=== PATIENT | male | born 1940 | race Caucasian/White ===

== ENCOUNTER 2018-04-12 09:21 | Inpatient (IN) | payer MEDICARE, OTHER ==
[~2018-04-12] VITALS: Ht 172.7 cm; Wt 11.8 kg
[~2018-04-12 09:21] MED LIST: ADAL40PEN IM; ALBU90OI61 INH; ALPR.5 PO; ALUMAG30SU PO; AMLO5 PO; AMOCLA875 PO; ANORO ELLIPTA1 EACH INH; ASPI325 PO; ASPI81CH PO; ASPI81EC PO; ATOR80 PO; Aspir 8181 MG PO; BUPR150ER PO; CETI5 PO; CHOL10002 PO; CIPR500 PO; CLOBET30L TOP; CLOP75 PO; CYAN1000 PO; Coumadin5 MG PO; ETAN50I SC; FURO20 PO; HYDR1TAB94 PO; LISI20 PO; LISI5 PO; LOSARTAN POTAS100 MG PO; METO25ER PO; MOME220I INH; NITR.4SL SL; OXYB5 PO; Omeprazole20 M1; Omeprazole20 M1 PO; Percocet 5-3251 EACH PO; Prilosec Otc20 MG PO; Pyridium200 MG PO; SPIRIVA RESPIMAT4 GM IH; SUCR1 PO; TAMS.4ER PO; TICA90TA PO; TIOT18 INH; TRAM50 PO; VITAMIN B122500 MCG PO; VITAMIN D2000 UNIT PO; Valium5 MG PO; WARF5 PO; WARF7.5 PO; WELLBUTRIN PO
[2018-04-12 09:52] LABS: BASOPHILS ABSOLUTE AUTO 0.03 K/mm3 (0.00-0.23); BASOPHILS PERCENT AUTO 0 % (0-2); EOSINOPHILS ABSOLUTE AUTO 0.01 K/mm3 (0.00-0.68); EOSINOPHILS PERCENT AUTO 0 % (0-6); Hematocrit 37.6 % (37.0-53.0); Hemoglobin 12.2 g/dL (13.5-17.5); IMMATURE GRAN ABSOLUTE AUTO 0.08 K/mm3 (0.00-0.10); IMMATURE GRAN PERCENT AUTO 1 % (0-1); LYMPHOCYTES ABSOLUTE AUTO 0.51 K/mm3 (0.84-5.20); LYMPHOCYTES PERCENT AUTO 3 % (21-46); MONOCYTES ABSOLUTE AUTO 1.86 K/mm3 (0.16-1.47); MONOCYTES PERCENT AUTO 11 % (4-13); Mean Corpuscular HGB 31.5 pg (26.0-34.0); Mean Corpuscular HGB Conc 32.4 g/dL (31.5-36.5); Mean Corpuscular Volume 97 fL (80-100); Mean Platelet Volume 10.9 fL (9.1-12.4); NEUTROPHILS ABSOLUTE AUTO 15.08 K/mm3 (1.96-9.15); NEUTROPHILS PERCENT AUTO 86 % (41-73); Platelet Count 284 K/mm3 (150-400); RDW Coefficient Variation 13.9 % (11.7-14.2); RDW Standard Deviation 49.1 fL (35.1-46.3); Red Blood Cell Count 3.87 M/mm3 (4.30-5.90); White Blood Cell Count 17.57 K/mm3 (4.00-11.30)
[2018-04-12 10:06] LABS: International Normalized Ratio 1.14; Prothrombin Time Results 11.7 Sec (9.7-11.5)
[2018-04-12 10:17] LABS: Alanine Aminotransfer (ALT/SGP 22 U/L (12-78); Albumin, Blood 2.6 g/dL (3.4-5.0); Albumin/Globulin Ratio 0.6 (0.8-1.8); Alk Phos 123 U/L (50-136); Anion Gap 11 mmol/L (6-16); Aspartate Aminotrans (AST/SGOT 17 U/L (12-37); Bilirubin, Total 1.1 mg/dL (0.1-1.0); Blood Urea Nitrogen 24 mg/dL (8-24); Bun/Creatinine Ratio 16.9 (12.0-20.0); CO2, Blood 25 mmol/L (21-32); Calcium, Blood 8.9 mg/dL (8.5-10.1); Chloride, Blood 100 mmol/L (98-108); Creatinine, Blood 1.42 mg/dL (0.60-1.20); Glomerular Filtration Rate 51 (60-); Glucose, Blood 137 mg/dL (70-99); Potassium, Blood 3.7 mmol/L (3.5-5.5); Sodium, Blood 136 mmol/L (136-145); Total Protein, Blood 6.6 g/dL (6.4-8.2); Troponin I <0.015 ng/mL (0.000-0.040)
[2018-04-12] MEDS ORDERED: Enbrel50 MG/1 M1 SC (19:35)
[2018-04-12] MEDS ORDERED: CHOL10002 PO (19:38)
[2018-04-12] MEDS ORDERED: RISP.5 PO (19:40)
[2018-04-12] MEDS ORDERED: BUPR150ER PO (19:41)
[2018-04-12] MEDS ORDERED: LOSA25 PO (19:42)
[2018-04-12] MEDS ORDERED: CLOBET30L TOP (19:44)
[2018-04-12] MEDS ORDERED: BREO ELLIPTA 11 EACH INH (19:44)
[2018-04-12] MEDS ORDERED: Norco 10-325 T1 EACH PO (19:46)
--- NOTE | 2018-04-12 19:52 | NUR ---
Shift Summary No acute changes since initial shift assessment (see assessment intervention). Pt calls appropriately at times. Bed alarm on. Denies any pain at this time. Pt repositions self. Continues to feel SOB on exertion. Started flomax per Dr. Richardson for bladderscan that showed >200mls post void. Pt had unmeasured void after administering lasix. No changes on tele - cardizem turned off at approx [address] Richardson as pt continued to sustain SR in the 90's- low 100's - started on PO cardizem. Pt mildly more A&O this evening. Pt has remained on 2L O2 NC. No changes on tele. Pt currently resting in bed with call light within reach. Denies any further questions, complaints or requests at this time. Report given to tong LLAMAS.
--- NOTE | 2018-04-13 00:01 | NUR ---
PM NOTE. ASSUMED CARE OF PT APROX 1900. PT IS A&O W/MOMENTS OF CONFUSION. HE IS PLEASENT AND COOPERATIVE WITH CARE. PT WAS ADMITTED DUE TO PNA, HE IS CURRENTLY ON 2 L NC W/STATS >90%, IS NORMALLY ON RA. TELE INTACT, SR W/PACS IN THE 80'S PER BEEKEEPER. BP 113/66. L/S COARSE W/CRACKELS T/O. BT PRESENT AND HYPERACTIVE. ABD IS SOFT AND NONTENDER TO PALP. PT IS EXPERIENCING URINARY RETENTION AT THIS TIME, WILL BLADDER SCAN AND MONTIOR WHEN PT VOIDS AGAIN. CALL LIGHT IN REACH, BED IS LOCKED AND LOW WILL CONTINUE TO MONITOR.
[2018-04-13 04:17] LABS: BASOPHILS ABSOLUTE AUTO 0.02 K/mm3 (0.00-0.23); BASOPHILS PERCENT AUTO 0 % (0-2); EOSINOPHILS ABSOLUTE AUTO 0.04 K/mm3 (0.00-0.68); EOSINOPHILS PERCENT AUTO 0 % (0-6); Hematocrit 32.6 % (37.0-53.0); Hemoglobin 10.7 g/dL (13.5-17.5); IMMATURE GRAN PERCENT AUTO 1 % (0-1); LYMPHOCYTES ABSOLUTE AUTO 0.88 K/mm3 (0.84-5.20); LYMPHOCYTES PERCENT AUTO 6 % (21-46); MONOCYTES PERCENT AUTO 13 % (4-13); Mean Corpuscular HGB 31.6 pg (26.0-34.0); Mean Corpuscular HGB Conc 32.8 g/dL (31.5-36.5); Mean Corpuscular Volume 96 fL (80-100); Mean Platelet Volume 11.2 fL (9.1-12.4); NEUTROPHILS ABSOLUTE AUTO 11.48 K/mm3 (1.96-9.15); NEUTROPHILS PERCENT AUTO 80 % (41-73); Platelet Count 249 K/mm3 (150-400); RDW Coefficient Variation 13.7 % (11.7-14.2); RDW Standard Deviation 48.7 fL (35.1-46.3); Red Blood Cell Count 3.39 M/mm3 (4.30-5.90); White Blood Cell Count 14.42 K/mm3 (4.00-11.30)
[2018-04-13 04:39] LABS: Alanine Aminotransfer (ALT/SGP 23 U/L (12-78); Albumin, Blood 2.2 g/dL (3.4-5.0); Albumin/Globulin Ratio 0.6 (0.8-1.8); Alk Phos 107 U/L (50-136); Anion Gap 9 mmol/L (6-16); Aspartate Aminotrans (AST/SGOT 20 U/L (12-37); Bilirubin, Total 0.7 mg/dL (0.1-1.0); Blood Urea Nitrogen 29 mg/dL (8-24); Bun/Creatinine Ratio 21.8 (12.0-20.0); CO2, Blood 25 mmol/L (21-32); Calcium, Blood 8.4 mg/dL (8.5-10.1); Chloride, Blood 101 mmol/L (98-108); Creatinine, Blood 1.33 mg/dL (0.60-1.20); Globulin, Blood 3.6 g/dL (2.2-4.0); Glomerular Filtration Rate 55 (60-); Glucose, Blood 96 mg/dL (70-99); Magnesium, Blood 1.8 mg/dL (1.6-2.4); Potassium, Blood 3.5 mmol/L (3.5-5.5); Sodium, Blood 135 mmol/L (136-145); Total Protein, Blood 5.8 g/dL (6.4-8.2)
--- NOTE | 2018-04-13 06:15 | NUR ---
SHFIT SUMMARY. NO ACUTE CHANGES NOTED, PT IS STILL SOB W/ACTIVITY, CONFUSION APPEARES TO BE SLOWLY CLEARING UP, BED ALARM STILL ON. PT IS STILL ON 2 L NC W/STATS >90%. L/S HAVE NOT IMPROVED. BLADDER SCAN PERFORMED ON PT POST VOID 191 PVR WAS FOUND. PT'S VS HAVE BEEN STABLE T/O SHIFT. PT COMPLAINED OF SEVERE PAIN AND ANXEITY, PT WAS MEDICATED PER EMAR WITH GOOD RESULTS. CALL LIGHT IN REACH, BED IS LOCKED AND LOW, WILL CONINTUE TO MONITOR UNTIL REPORT IS GIVEN TO ONCOMING RN.
--- NOTE | 2018-04-13 07:45 | NUR ---
ASSUMED CARE ASSUMED CARE OF PT AT 0700. PT IN BED SLEEPING, AROUSES TO VERBAL STIMULUS. PT NOTED TO BE USING ABDOMINAL MUSCLES TO BREATHE, NOTED TO HAVE EXPIRATORY WHEEZES TO RIGHT SIDE AND COARSENESS TO LEFT LOWER LOBE. HOWEVER, PT STATES BREATHING "FEELS BETTER" THAN IT HAS SINCE ADMIT. PT WEARING SUPPLEMENTAL O2 VIA NASAL CANNULA AT 2L/MIN, SPO2 95%. TELE MONITORING IN PLACE - PT IN SR WITH HR 80'S. PT HAS PIV SL. BED ALARM ON FOR SAFETY. SEE SHIFT ASSESSMENT FOR FURTHER. WILL CONTINUE TO MONITOR.
--- NOTE | 2018-04-13 11:40 | NUR ---
CONGESTION/HEAD PRESSURE/ DR. WINCHESTER PT COMPLAINING OF FEELING SHORT OF BREATH AND FEELING 9/10 HEAD "PAIN" WHICH HE DESCRIBES PRESSURE UNDER THE EYEBALLS. CALL TO DR. WINCHESTER. ORDERS RECEIVED FOR MUCINEX AND FLONASE. ALSO CALLED RT FOR BREATHING TREATMENT. MED FOR PAIN PER EMAR. WILL CONTINUE TO MONITOR.
--- NOTE | 2018-04-13 13:14 | NUR ---
Echocardiogram completed.
--- NOTE | 2018-04-13 14:27 | NUR ---
DR. WINCHESTER IN TO ASSESS PT - PT LETHARGIC AND SOMEWHAT DIFFICULT TO AROUSE, CONFUSED. PT'S AT BEDSIDE STATES PT IS NOT CONFUSED AT BASELINE. PT REMAINS ON 2L/MIN NC WITH SATS LOW 90'S, HOWEVER APPEARS TO BE WORKING HARDER TO BREATHE WITH ABDOMINAL AND ACCESSORY MUSCLE USE. CALL TO DR. WINCHESTER. ORDERS RECEIVED FOR STAT CXR AND ABG. RT NOTIFIED.
[2018-04-13 14:38] LABS: PCO2 Arterial 35.9 mmHg (35-45); pH Blood Arterial 7.44 (7.35-7.45)
--- NOTE | 2018-04-13 15:25 | NUR ---
NARCAN NARCAN ADMINISTERED PER DR. WINCHESTER'S ORDER. AFTER 1-2 MIN, PT BEGINS YELLING OUT, STATES HE IS IN EXTREME PAIN AND FEELS LIKE HE IS GOING TO THROW UP. PT MED WITH ZOFRAN. BP INCREASES FROM 89 SYSTOLIC TO 124 SYSTOLIC. PT RR INCREASES TO 30. SPO2 MAINTAINING 90% ON 3L/MIN. PT CONTINUALLY REPEATING "DON'T EVER DO THIS TO ME AGAIN". PT SHAKING LEGS, CRYING OUT "PLEASE HELP, OH GOD, CALL THE DOCTOR!". PT VERY AGITATED. PLAN TO CALL DR. WINCHESTER.
--- NOTE | 2018-04-13 15:53 | NUR ---
DR. ANNABELLA WINCHESTER TO BEDSIDE TO EVALUATE PT. STATES THAT PT'S LUNGS SOUND BETTER THAN YESTERDAY IN ER AND SHE BELIEVES THIS MAY BE ANXIETY RELATED. ORDERS RECEIVED FOR 5MG NORCO AND BREATHING TX. RT TO BEDSIDE FOR BREATHING TX AT THIS TIME. PT REMAINS AGITATED, STATING "GET ME OUT OF HERE!". PT'S AT BEDSIDE ATTEMPTING TO CALM PT.
--- NOTE | 2018-04-13 18:04 | NUR ---
SHIFT SUMMARY PT CONTINUES TO BE AGITATED AND CONFUSED. PT REQUIRES NEARLY CONTINUOUS RE-ORIENTATION ABOUT NURSING CARE. PT'S AT BEDSIDE ABLE TO CALM AND RE-ORIENT PT SOMEWHAT. PT COOPERATIVE WITH CARE AT THIS TIME. PT'S RESPIRATORY STATUS HAS SOMEWHAT IMPROVED. PT ON 3L/MIN NC AT THIS TIME WITH SATS MID 90'S, RR LOW 20'S, ACCESSORY MUSCLE USE DECREASED. PT HAS CORRAL CATHETER IN PLACE FOR STRICT I&O MONITORING WELL RETENTION. BED ALARM ON FOR SAFETY. WILL CONTINUE TO MONITOR PT AND GIVE HANDOFF REPORT TO ONCOMING RN WHEN AVAILABLE.
[2018-04-13 18:05] LABS: Source, Urine Catheter
[2018-04-13 18:08] LABS: Bilirubin, Urine Neg (Neg); Blood, Urine 4+ (Neg); Glucose Qualitative, Urine Neg (Neg); Ketones, Urine Neg (Neg); Leukocyte Esterase, Urine Neg (Neg); Nitrite, Urine Neg (Neg); Protein, Urine 1+ (Neg); Specific Gravity, Urine 1.015 (1.003-1.022); Urobilinogen, Urine NORM (Normal)
[2018-04-13 18:20] LABS: Appearance, Urine Hazy (Clear); Color, Urine Yellow (P-Yellow)
[2018-04-13 18:21] LABS: Bacteria Mod /hpf; Squamous Epithelial Cells Not Seen /hpf (Few); White Blood Cells, Urine 0-2 /hpf (0-5)
--- NOTE | 2018-04-13 22:55 | NUR ---
PATIENT UPDATE PATIENT WAS CONFUSED AT SHIFT CHANGE. HE WAS STANDING UP AT BEDSIDE, BED ALARM RINGING, TRYING TO LOCATE SOMETHING SHAPED LIKE A PADDLE THAT WAS A PART OF HIS BED. HE WAS REDIRECTED BACK TO BED BUT CONTINUED TO BE FRUSTRATED WITH HIS INAILITY TO REMEMBER WHAT HE WAS LOOKING FOR. ADDITIONALLY AT SHIFT ONSET, PT REPORTEDLY TOLD RT THAT HE WANTED TO AND WANTED HER TO HELP HIM. HE WAS CRYING AND HURT AT THE TIME. PT HAS BEEN OFF OF HIS ORDERED DAILY MEDS SINCE ARRIVAL. CHARGE NURSE HUNG OUT WITH THE PATIENT DURING A IV REMOVAL, RESTART AND SHOWER. BY THE TIME HE WAS CLEAN AND BACK IN BED, HIS MENTATION WAS CLEARER, HE NO LONGER HAD ANY ISSUES WITH CRYING. HE DID GET TO TALK TO HIS FOR A FEW MINUTES. THIS WAS OBSERVED TO HELP HIM CONSIDERABLY. HE DENIES WANTING TO AT THIS TIME. DOCTOR WAS NOTIFED THAT IF THIS CHANGES, HE WILL BE NOTIFIED. DIET TECH AND CENTRIFUGAL CASTING MACHINE TENDER WERE ALSO NOTIFIED AND PATIENT IS BEING MONITORED. NO FURTHER ISSUES HAVE ARISEN AT THIS TIME.
[2018-04-14 03:58] LABS: BASOPHILS ABSOLUTE AUTO 0.02 K/mm3 (0.00-0.23); BASOPHILS PERCENT AUTO 0 % (0-2); EOSINOPHILS ABSOLUTE AUTO 0.04 K/mm3 (0.00-0.68); EOSINOPHILS PERCENT AUTO 0 % (0-6); Hematocrit 32.1 % (37.0-53.0); Hemoglobin 10.4 g/dL (13.5-17.5); IMMATURE GRAN ABSOLUTE AUTO 0.21 K/mm3 (0.00-0.10); IMMATURE GRAN PERCENT AUTO 2 % (0-1); LYMPHOCYTES ABSOLUTE AUTO 0.62 K/mm3 (0.84-5.20); LYMPHOCYTES PERCENT AUTO 5 % (21-46); MONOCYTES ABSOLUTE AUTO 1.24 K/mm3 (0.16-1.47); MONOCYTES PERCENT AUTO 10 % (4-13); Mean Corpuscular HGB 31.8 pg (26.0-34.0); Mean Corpuscular HGB Conc 32.4 g/dL (31.5-36.5); Mean Corpuscular Volume 98 fL (80-100); Mean Platelet Volume 10.9 fL (9.1-12.4); NEUTROPHILS ABSOLUTE AUTO 10.26 K/mm3 (1.96-9.15); NEUTROPHILS PERCENT AUTO 83 % (41-73); Platelet Count 280 K/mm3 (150-400); RDW Coefficient Variation 13.7 % (11.7-14.2); RDW Standard Deviation 49.9 fL (35.1-46.3); Red Blood Cell Count 3.27 M/mm3 (4.30-5.90); White Blood Cell Count 12.39 K/mm3 (4.00-11.30)
[2018-04-14 04:20] LABS: Albumin/Globulin Ratio 0.5 (0.8-1.8); Bilirubin, Total 0.6 mg/dL (0.1-1.0); Bun/Creatinine Ratio 20.9 (12.0-20.0); Calcium, Blood 8.3 mg/dL (8.5-10.1); Creatinine, Blood 1.29 mg/dL (0.60-1.20); Globulin, Blood 3.7 g/dL (2.2-4.0); Potassium, Blood 3.5 mmol/L (3.5-5.5); Total Protein, Blood 5.7 g/dL (6.4-8.2)
--- NOTE | 2018-04-14 07:18 | NUR ---
SHIFT SUMMARY PT HAD LONG NIGHT, HE WAS CONFUSED T/O SHIFT. HE MADE REFERENCE TO WISHING HE COULD JUST AND BE DONE WITH EVERYTHING. WHEN QUESTIONED FURTHER, HE PASSED HIS SI ASSESSMENT AND STATED INSTEAD THAT HE WISHES HE COULD BE ANYWHERE BUT HERE. HE HAS BEEN STRESSED AND ANXIOUS T/O SHIFT. HE WAS FINALLY PROVIDED WITH ORDERED HALDOL BY MORNING AND THIS SEEMED TO BRING HIM DOWN A BIT. THERE WAS NO REFERENCE TO MENTAL ILLNESS OR PHSYCH HISTORY IN ANY OF HIS HISTORY WITH FIDE. PT TAKES ANTI PSYCH MEDS AT HOME, BUT AGAIN, NO RELEVANT HISTORY FOUND. PT WAS ABLE TO STAND AT BEDSIDE, BUT NEEDED LOT OF REORIENTATION TO WHERE HE WAS, WHY HE WAS HERE, WHEN HE WOULD BE LEAVING. PT WENT BETWEEN TEARY AND SAD TO ANGRY AND FRUSTRATED. HE HALLUCINATED VISUALLY AT TIMES AND HAD PARANOID EPISODES AT TIMES. HE HAS HAD STABLE VITAL SIGNS AND MENTATION REMAINED THE SAME T/O SHIFT. CONTINUES TO BE CONFUSED THIS MORNING, BUT LESS ANXIOUS. DOCTOS, CHARGE NURSE, AND STAFF MEMBERS ARE IN THE LOOP. BED ALARM IS ACTIVE. WILL CONTINUE TO MONITOR UNTIL HANDOFF TO DAYSHIFT RN,
--- NOTE | 2018-04-14 07:20 | NUR ---
NURSING PCU DAYSHIFT: Assumed care of pt at approx 0700. Alert, forgetful, irritable at times, cooperative w/most aspects of care. C/O 8/10 pain r/t JAIME. Skin is dry/fragile w/no breakdown noted. C/O general weakness. Tele in place, afib w/HR 100-110, BP stable, no c/o CP/pressure, trace BLE edema. L/S coarse in KAYCE w/bibasilar crackles, respirations shallow and irregular, dyspnea w/minimal exertion, O2 sat mid 90's on 3L NC. Abd SNT, BT+, FC w/stat lock present and draining well. PIV x1, s/l. No s/s of acute distress at this time. Pt denies any current needs though has frequent/repetitive questions regarding plan of care. Call light in reach and pt has demonstrated ability to use w/o difficulty. Awaiting rounding from PMD, cont to monitor for any changes.
--- NOTE | 2018-04-14 17:33 | NUR ---
NURSING PCU DAYSHIFT SUMMARY: No significant changes noted t/o the shift. Pt remains irritable, confused, and anxious. Haldol administered w/little improvement noted. S/O at bedside earlier in shift, update provided, ST martins completed per spouse request. Respiratory status unchanged. Pt placed on RA w/O2 sat 94% though pt became very anxious and insisted that O2 be resumed, increased to 2L NC at that time. Continues to experience wheezing and dyspnea w/minimal exertion. RT at bedside for breathing treatments which pt needs much encouragement to complete. Call light remains in reach and pt has used numerous times t/o the day. Cont to monitor for changes until rpt is given to NOC RN.
--- NOTE | 2018-04-15 06:45 | NUR ---
SHIFT SUMMARY PATIENT CONFUSED AND FORGETFUL THROUGHOUT THE NIGHT. PATIENT UNABLE TO BE REORIENTED WELL EVEN WITH FREQUENT REORIENTATION. PATIENT CONSTANTLY ASKING THE SAME QUESTIONS OVER AND OVER AGAIN. PATIENT ABLE TO STATE HIS NAME AND BIRTHDATE BUT UNABLE TO REMEMBER WHERE HE WAS OR WHY HE IS HERE. PATIENT STANDING AT THE EDGE OF THE BED WITH ONE ASSIST AND FWW AND THEN LAYING BACK DOWN AGAIN FREQUENTLY WHILE AWAKE. PATIENT DID APPEAR TO SLEEP WELL FOR SEVERAL HOURS LAST NIGHT. PATIENT CALLS OUT FREQUENTLY AND IS ABLE TO USE THE CALL LIGHT. PATIENT CONTINUES TO GET SOB WITH EXERTION. PATIENT DOES GET ANXIOUS AT TIMES WHEN HE BECOMES SOB. WILL CONTINUE TO MONITOR PATIENT AND REPORT TO ONCOMING RN.
--- NOTE | 2018-04-15 12:15 | NUR ---
PT TRANSFER REPORT CALLED TO MED FLOOR RN FOR PT TRANSFER TO [facility]. PT AND SPOUSE INFORMED OF CHANGE IN STATUS. BELONGINGS GATHERED UP AND SENT WITH PT. PT LEFT VIA WC WITH COACH OPERATOR. NO BELONGINGS LEFT IN ROOM. CHART AND MEDS SENT WITH PT.
--- NOTE | 2018-04-15 14:52 | NUR ---
PATIENT ARRIVAL PATIENT ARRIVED VIA W/C WITH TO MEDICAL FLOOR. AT THIS TIME HE IS SITTING IN BED PEACEFULLY. A&OX4. CONVERSIVE WITH STAFF. ACKNOWLEDGING HIS INCREASED CONFUSION THAT HE HAD EXPERIENCED. STATES HE IS FEELING MORE CLEAR. CURRENTLY ON 2L O2. WHEEZING/SOB NOTED. ABLE TO MAKE HIS NEEDS KNOWN. BED ALARM PLACED WHEN NOT AT BEDSIDE.
--- NOTE | 2018-04-15 17:06 | NUR ---
SHIFT SUMMARY PATIENT HAS HAD NO ACUTE CHANGES. HE IS SITTING IN BED, AT BEDSIDE. HE IS A&OX4. MEDICATED WITH NORCO FOR CHRONIC BACK PAIN.
--- NOTE | 2018-04-16 05:06 | NUR ---
SHIFT SUMMARY: PATIENT IS A&O X 3 BUT FORGETFUL AT TIMES, BED ALARM IS ON FOR SAFETY. CORRAL PUT OUT 1650 ML CLEAR YELLOW URINE. PATIENT IS EXTREMLY SOB WITH ACTIVITY, SATS REMAINS IN MID 90'S WITH 2L NC ON BUT HEART RATE INCREASES UP TO 124 WITH ANY ACTIVITY. OXYGEN REMAINS AT 2L. NORCO IS EFFECTIVE FOR CHRONIC BACK PAIN WHEN GIVEN Q4H. IV ACCESS WAS LOST, ORDER WAS OBTAINED TO LEAVE IV OUT.
--- NOTE | 2018-04-16 08:41 | NUR ---
PATIENT WOKE UP TEARFUL STATING, KILL ME I JUST WANT TO . THIS RN ASKED IF HE WAS IN PAIN, HE STATED HE WAS IN PAIN. THIS RN IMMEDIATELY GAVE HIS PRN NORCO. ALSO GAVE ANTIDEPRESSENT MEDICATIONS. CALLED PATIENTS . SHE STATED SHE WOULD BE IN SHORTLY TO VISIT. (AT TIME OF NOTE SHE IS AT HIS BEDSIDE). THIS RN ASKED PATIENT IF HE HAD A PLAN TO KILL HIMSELF. PATIENT STATED "I AM NOT SURE, I DO NOT THINK I AM SMART ENOUGH TO KILL MYSELF." THIS RN THEN NOTIFIED THE HOSPITALIST DR. MAYER (AT TIME OF THIS NOTE DR. MAYER IS AT BEDSIDE). THIS RN ALSO NOTIFIED PALLIATIVE CARE RN, LEA. (AT TIME OF THIS NOTE PALLIATIVE CARE NURSE IS AT BEDSIDE).
--- NOTE | 2018-04-16 09:41 | NUR ---
called to see pt who is aggitated and acting out. Expresses self harm if does not come in. Pt forgetfull and aggitated. Physician and in to see pt. He has poor recall of events and is fearfull from loss of memory and control. Review of strategies for patient and family for discharge. states she has minimal help with him and she has been dealing with depression and difficulty sleeping. she states he was driving a little last week. He could manuever but evasive about his memory at home. Pt repetative and aggitated. Reviewed discharge strategies with phsyisician. pt does not have a plan expresses more anger and memory issues that harm. will review with case hardener
--- NOTE | 2018-04-16 11:27 | NUR ---
CATHETAR WAS TAKEN AT 1127.
--- NOTE | 2018-04-16 11:30 | NUR ---
PATIENT HAS ASKED WHY HE IS IN THE HOSPITAL SINCE HIS , LEA LUA,FARHAD LEFT HIS ROOM. HE HAS BEEN TEARFUL 1 ADDITIONAL TIME, STATING HE DOESNT WANT TO BE IN THE HOSPITAL. PROVIDED REASSURANCE. NO INDICATIONS OF SUICIDE AT THIS TIME. SHAYNA D/C. CONTINUING TO MONITOR.
[2018-04-16] MEDS ORDERED: BUDESONIDE1 MG/2 ML INH (14:02)
[2018-04-16] MEDS ORDERED: B-121000 MC2 PO (14:07)
[2018-04-16] MEDS ORDERED: DILT30 PO (14:07)
[2018-04-16] MEDS ORDERED: LEVO750 PO (14:09)
[2018-04-16] MEDS ORDERED: TAMS.4ER PO (14:12)
--- NOTE | 2018-04-16 18:11 | NUR ---
patient discharged with home o2. THIS RN ESCORTED PATIENT TO THEIR VEHICLE. PATIENT TRANSFERRED INTO THE CAR WITH MINIMAL ASSISTANCE. THANKED ME FOR THE "KIND CARE". INFORMED PATIENT RX FAXED TO PHARMACY. AND TO CALL [facility] IF THEY WERE NOT AT [facility] UPON ARRIVAL.
== END 2018-04-16 18:00 | disposition home health service (06) | DRG 871 ==
LOC: ER 09:21 → PCU 11:16 → MEDS 04-15 12:55
PROVIDERS: Emergency Medicine; ADMIT Internal Medicine
DX: A41.9 Sepsis, unspecified organism (principal); J69.0 Pneumonitis due to inhalation of food and vomit; J96.01 Acute respiratory failure with hypoxia; J44.1 Chronic obstructive pulmonary disease with (acute) exacerbation; I13.0 Hypertensive heart and chronic kidney disease with heart failure and stage 1 through stage 4 chronic kidney disease, or unspecified chronic kidney disease; I50.30 Unspecified diastolic (congestive) heart failure; I50.32 Chronic diastolic (congestive) heart failure; I25.10 Atherosclerotic heart disease of native coronary artery without angina pectoris; M54.9 Dorsalgia, unspecified; Z51.5 Encounter for palliative care; G89.29 Other chronic pain; L40.9 Psoriasis, unspecified; Z90.79 Acquired absence of other genital organ(s); Z95.5 Presence of coronary angioplasty implant and graft; N18.3 Chronic kidney disease, stage 3 (moderate); I25.2 Old myocardial infarction; Z87.891 Personal history of nicotine dependence; Z79.82 Long term (current) use of aspirin; I27.20 Pulmonary hypertension, unspecified; N40.0 Benign prostatic hyperplasia without lower urinary tract symptoms; R13.10 Dysphagia, unspecified; F03.90 Unspecified dementia, unspecified severity, without behavioral disturbance, psychotic disturbance, mood disturbance, and anxiety; R65.20 Severe sepsis without septic shock
CPT/HCPCS: 36415; 36600; 51702; 71045; 71046; 80053; 81001; 82803; 83605; 83735; 83880; 84484; 85025; 85610; 85730; 87040; 87070; 87086; 87205; 92610; 93005; 93010; 93306; 94640; 94760; 94761; 96361; 96365; 96366; 96368; 96376; 97162; 97530; 99285-25; G0103; J0456; J0696; J1630; J1650; J1940; J2310; J2405; J7030; J7050; J7626

== ENCOUNTER 2020-07-16 14:21 | Emergency (ER) | payer MEDICARE, SELFPAY ==
[~2020-07-16] VITALS: Ht 177.8 cm; Wt 86.2 kg
[~2020-07-16 14:21] MED LIST changes: +ALBU90OI INH; +ATOR20 PO; +B-121000 MC2 PO; +BREO ELLIPTA 11 EACH INH; +BUDESONIDE1 MG/2 ML INH; +BUPROPION XL150 M1 PO; +DILTIAZEM 24HR120 M4 PO; +Enbrel50 MG/1 M1 SC; +LEVO750 PO; +LOSA25 PO; +LOSARTAN POTASS25 M2 PO; +MS Contin15 MG PO; +Norco 10-325 T1 EACH PO; +Prednisone20 MG PO; +RISP.5 PO
[2020-07-16 15:23] LABS: BASOPHILS ABSOLUTE AUTO 0.02 K/mm3 (0.00-0.23); BASOPHILS PERCENT AUTO 0 % (0-2); EOSINOPHILS ABSOLUTE AUTO 0.09 K/mm3 (0.00-0.68); EOSINOPHILS PERCENT AUTO 1 % (0-6); Hematocrit 32.9 % (37.0-53.0); Hemoglobin 10.8 g/dL (13.5-17.5); IMMATURE GRAN ABSOLUTE AUTO 0.08 K/mm3 (0.00-0.10); IMMATURE GRAN PERCENT AUTO 1 % (0-1); LYMPHOCYTES ABSOLUTE AUTO 0.66 K/mm3 (0.84-5.20); LYMPHOCYTES PERCENT AUTO 5 % (21-46); MONOCYTES ABSOLUTE AUTO 1.96 K/mm3 (0.16-1.47); MONOCYTES PERCENT AUTO 16 % (4-13); Mean Corpuscular HGB 29.9 pg (26.0-34.0); Mean Corpuscular HGB Conc 32.8 g/dL (31.5-36.5); Mean Corpuscular Volume 91 fL (80-100); Mean Platelet Volume 10.7 fL (9.1-12.4); NEUTROPHILS ABSOLUTE AUTO 9.82 K/mm3 (1.96-9.15); NEUTROPHILS PERCENT AUTO 78 % (41-73); Platelet Count 283 K/mm3 (150-400); RDW Coefficient Variation 15.3 % (11.7-14.2); RDW Standard Deviation 51.3 fL (35.1-46.3); Red Blood Cell Count 3.61 M/mm3 (4.30-5.90); White Blood Cell Count 12.63 K/mm3 (4.00-11.30)
[2020-07-16 15:45] LABS: Alanine Aminotransfer (ALT/SGP 15 U/L (12-78); Albumin, Blood 2.5 g/dL (3.4-5.0); Albumin/Globulin Ratio 0.7 (0.8-1.8); Alk Phos 101 U/L (50-136); Anion Gap 5 mmol/L (6-16); Aspartate Aminotrans (AST/SGOT 5 U/L (12-37); Bilirubin, Total 0.6 mg/dL (0.1-1.0); Blood Urea Nitrogen 23 mg/dL (8-24); Bun/Creatinine Ratio 21.9 (12.0-20.0); CO2, Blood 23 mmol/L (21-32); Calcium, Blood 8.4 mg/dL (8.5-10.1); Chloride, Blood 109 mmol/L (98-108); Creatinine, Blood 1.05 mg/dL (0.60-1.20); Globulin, Blood 3.5 g/dL (2.2-4.0); Glomerular Filtration Rate >60 (60-); Glucose, Blood 109 mg/dL (70-99); Potassium, Blood 4.3 mmol/L (3.5-5.5); Sodium, Blood 137 mmol/L (136-145); Troponin I <0.015 ng/mL (0.000-0.040)
[2020-07-16] MEDS ORDERED: Prednisone20 MG PO (16:58)
[2020-07-16] MEDS ORDERED: DOXY100 PO (16:58)
[2020-08-07] MEDS ORDERED: BREO ELLIPTA 11 EAC1 IH (10:12)
[2020-08-07] MEDS ORDERED: NITROGLYCERIN0.4 M3 (10:12)
[2020-08-07] MEDS ORDERED: THERA-D2000 UNIT PO (10:13)
[2020-08-07] MEDS ORDERED: ZYRTEC10 M2 PO (10:13)
[2020-08-07] MEDS ORDERED: EMBREL (10:13)
[2020-08-07] MEDS ORDERED: ASPI81CH PO (10:14)
== END 2020-07-16 22:03 | disposition home or self-care (01) ==
LOC: ER 14:21
PROVIDERS: Emergency Medicine
DX: J44.0 Chronic obstructive pulmonary disease with (acute) lower respiratory infection (principal); J18.9 Pneumonia, unspecified organism; J44.1 Chronic obstructive pulmonary disease with (acute) exacerbation; Z79.899 Other long term (current) drug therapy
CPT/HCPCS: 71045; 80053; 83880; 84484; 85025; 93005; 93010; 94640; 96374; 96375; 99285-25; J2270; J2405